=== PATIENT | female | born 1950 | race Caucasian/White ===

== ENCOUNTER 2018-09-20 13:32 | Emergency (ER) | payer MEDICARE ==
[~2018-09-20] VITALS: Ht 167.6 cm; Wt 67.8 kg
[2018-09-20 14:18] LABS: RAPID INFLUENZA A Negative (Negative); RAPID INFLUENZA B Negative (Negative)
--- NOTE | 2018-09-20 14:21 | NUR ---
PT TO ROOM BY WHEELCHAIR WITH RAILWAY [employer]. FRIEND ACCOMPANIES.
[2018-09-20 14:30] VITALS: BP 123/80
--- NOTE | 2018-09-20 14:34 | NUR ---
PT CO GENERAL FLU-LIKE SYMPTOMS X TWO WEEKS, WORSENING WEAKNESS/DIZZINESS X TWO DAYS DESPITE OTC MEDICATIONS AND Z-PACK. PT ADMITS CP W/ COUGHING AND PRODUCTIVE COUGH W/ YELLOW/GREEN SPUTUM. LUNGS CLEAR, SPO2 >90% ON RA. PT DENIES FEVER/SYNCOPE; A&OX4; FACE SYMMETRICAL, SPEECH CLEAR, +STRENGTH X 4. BP/SPO2 MONITORING IN PLACE. VS WNL.
[2018-09-20] MEDS ORDERED: LISI2.5T PO (14:37)
[2018-09-20] MEDS ORDERED: LEVO25TA4 PO (14:37)
[2018-09-20 14:50] LABS: BASOPHILS # (AUTO) 0.03 x10^3/uL (0-0.1); BASOPHILS % (AUTO) 1 % (0-1); EOSINOPHILS # (AUTO) 0.06 x10^3/uL (0-0.4); EOSINOPHILS % (AUTO) 1 % (1-7); LYMPHOCYTES # (AUTO) 1.45 x10^3/uL (1-3.4); LYMPHOCYTES % (AUTO) 26 % (22-44); MD NO; MEAN CORPUSCULAR HEMOGLOBIN 33.9 pg (27.0-34.8); MEAN CORPUSCULAR HGB CONC 34.2 g/dL (32.4-35.8); MEAN CORPUSCULAR VOLUME 99.2 fL (80-100); MEAN PLATELET VOLUME 7.2 fL (7.4-10.4); MONOCYTES # (AUTO) 0.66 x10^3/uL (0.2-0.8); MONOCYTES % (AUTO) 12 % (2-9); NEUTROPHILS # (AUTO) 3.43 x10^3/uL (1.8-6.8); NEUTROPHILS % (AUTO) 61 % (42-75); PLATELET COUNT 279 x10^3/uL (130-400); RED BLOOD COUNT 4.36 x10^6/uL (3.82-5.3); RED CELL DISTRIBUTION WIDTH 12.2 % (9.6-15.2)
[2018-09-20 14:54] LABS: ALBUMIN 3.9 g/dL (3.4-5.0); ANION GAP 8 mmol/L (5-15); CALCIUM 9.4 mg/dL (8.5-10.1); CHLORIDE 105 mmol/L (98-107); CREATININE 0.86 mg/dL (0.55-1.02)
--- NOTE | 2018-09-20 15:29 | NUR ---
POC IS DC. PT PROVIDED PEDIALYTE FOR SODIUM REPLACEMENT. PT OFF MONITORING AT THIS TIME AND ASKED TO DRESS SELF. FRIEND AT BEDSIDE FOR ASSISTANCE. AWAITING DC INSTRUCTIONS.
== END 2018-09-20 16:07 | disposition home or self-care (01) ==
LOC: ED 15:50
DX: J20.9 Acute bronchitis, unspecified (principal); J06.9 Acute upper respiratory infection, unspecified; E86.0 Dehydration; R53.1 Weakness; I10 Essential (primary) hypertension; E03.9 Hypothyroidism, unspecified
CPT/HCPCS: 36415; 71046; 80048; 82040; 85025; 87400; 93005; 99284

== ENCOUNTER → 2018-09-30 | Outpatient (CLI) | payer MEDICARE ==
[~2018-09-30] MED LIST: LEVO25TA4 PO; LISI2.5T PO
== END | disposition home or self-care (01) ==
LOC: CFH 12:58
PROVIDERS: ATTEND Internal Medicine
DX: M47.896 Other spondylosis, lumbar region (principal); M25.552 Pain in left hip
CPT/HCPCS: 72110

== ENCOUNTER 2019-09-30 11:16 | Observation (INO) | payer MEDICARE ==
[~2019-09-30] VITALS: Ht 167.6 cm; Wt 70.3 kg
[2019-09-30] MEDS ORDERED: SODIUM CHLORIDE FLUSH 10ML SYR IVF ONE (12:00)
[2019-09-30 12:04] LABS: BASOPHILS # (AUTO) 0.03 x10^3/uL (0-0.1); BASOPHILS % (AUTO) 1 % (0-1); EOSINOPHILS # (AUTO) 0.04 x10^3/uL (0-0.4); EOSINOPHILS % (AUTO) 1 % (1-7); LYMPHOCYTES # (AUTO) 1.14 x10^3/uL (1-3.4); LYMPHOCYTES % (AUTO) 28 % (22-44); MD NO; MEAN CORPUSCULAR HEMOGLOBIN 34.1 pg (27.0-34.8); MEAN CORPUSCULAR HGB CONC 34.3 g/dL (32.4-35.8); MEAN CORPUSCULAR VOLUME 99.5 fL (80-100); MEAN PLATELET VOLUME 7.1 fL (7.4-10.4); MONOCYTES # (AUTO) 0.45 x10^3/uL (0.2-0.8); MONOCYTES % (AUTO) 11 % (2-9); NEUTROPHILS # (AUTO) 2.44 x10^3/uL (1.8-6.8); NEUTROPHILS % (AUTO) 60 % (42-75); PLATELET COUNT 315 x10^3/uL (130-400); RED BLOOD COUNT 4.12 x10^6/uL (3.82-5.3); RED CELL DISTRIBUTION WIDTH 11.9 % (9.6-15.2)
[2019-09-30 12:13] LABS: ALBUMIN 3.6 g/dL (3.4-5.0); ANION GAP 6 mmol/L (5-15); CALCIUM 9.4 mg/dL (8.5-10.1); CHLORIDE 107 mmol/L (98-107); CREATININE 0.92 mg/dL (0.55-1.02)
--- NOTE | 2019-09-30 12:30 | NUR ---
DIZZY SINCE LAST SUN TO UC AT THAT TIME IS NOT RESOLVEING PT TO CT AT THIS TIME
--- NOTE | 2019-09-30 13:04 | NUR ---
PT RETURNED FROM US
[2019-09-30] MEDS ORDERED: OMNIPAQUE 350 MG/ML, 100ML BOTTLE ONE (14:48)
--- NOTE | 2019-09-30 15:02 | NUR ---
ED MD AT BEDSIDE TO DISCUSS POC C PT.
[2019-09-30 15:19] LABS: TROPONIN I < 0.015 ng/mL (0.000-0.045)
[2019-09-30] MEDS ORDERED: ASPIRIN 81 MG TABLET CHEW PO ONE (16:00)
[2019-09-30] MEDS ORDERED: ACETAMINOPHEN 325 MG TABLET PO PRN (16:30)
[2019-09-30] MEDS ORDERED: ONDANSETRON ODT 4 MG PO PRN (16:30)
[2019-09-30] MEDS ORDERED: ONDANSETRON 2MG/ML, 2ML IVPush PRN (16:30)
[2019-09-30] MEDS ORDERED: ASPIRIN 81 MG TABLET CHEW ONE (16:42)
[2019-09-30] MEDS ORDERED: LISINOPRIL 10 MG TABLET ONE (16:42)
--- NOTE | 2019-09-30 16:49 | NUR ---
PT TO MRI AT THIS TIME REMAINS DIZZY ON MOVEMENT
[2019-09-30] MEDS ORDERED: LISINOPRIL 10 MG TABLET PO ONE (17:00)
--- NOTE | 2019-09-30 17:30 | NUR ---
TASK RN: REPORT GIVEN TO BECCA TOMPKINS RN. ALL QUESTIONS ANSWERED. AWAITING PT TRANSPORT.
[2019-09-30] MEDS ORDERED: GABA-826 PO (18:08)
[2019-09-30 18:20] VITALS: BP 137/80
[2019-09-30] MEDS ORDERED: ATORVASTATIN 40 MG TABLET PO SCH (21:00)
[2019-10-01 00:05] VITALS: BP 111/76
[2019-10-01 05:22] LABS: CHLORIDE 108 mmol/L (98-107)
[2019-10-01 05:30] LABS: BASOPHILS # (AUTO) 0.03 x10^3/uL (0-0.1); BASOPHILS % (AUTO) 1 % (0-1); EOSINOPHILS # (AUTO) 0.07 x10^3/uL (0-0.4); EOSINOPHILS % (AUTO) 1 % (1-7); LYMPHOCYTES # (AUTO) 1.77 x10^3/uL (1-3.4); LYMPHOCYTES % (AUTO) 34 % (22-44); MD NO; MEAN CORPUSCULAR HEMOGLOBIN 33.9 pg (27.0-34.8); MEAN CORPUSCULAR HGB CONC 33.8 g/dL (32.4-35.8); MEAN CORPUSCULAR VOLUME 100.4 fL (80-100); MEAN PLATELET VOLUME 7.2 fL (7.4-10.4); MONOCYTES # (AUTO) 0.53 x10^3/uL (0.2-0.8); MONOCYTES % (AUTO) 10 % (2-9); NEUTROPHILS # (AUTO) 2.74 x10^3/uL (1.8-6.8); NEUTROPHILS % (AUTO) 53 % (42-75); PLATELET COUNT 304 x10^3/uL (130-400); RED BLOOD COUNT 4.17 x10^6/uL (3.82-5.3); RED CELL DISTRIBUTION WIDTH 11.6 % (9.6-15.2)
[2019-10-01 05:36] LABS: ALANINE AMINOTRANSFERASE 24 U/L (12-78); ALBUMIN 3.6 g/dL (3.4-5.0); ALKALINE PHOSPHATASE 43 U/L (45-117); ANION GAP 7 mmol/L (5-15); BILIRUBIN,TOTAL 0.5 mg/dL (0.2-1.0); CALCIUM 9.4 mg/dL (8.5-10.1); CHOL/HDL RATIO 2.8; CHOLESTEROL, TOTAL 144 mg/dL (140-239); CREATININE 0.74 mg/dL (0.55-1.02); HDL CHOL % 36 % (28-40); HDL CHOLESTEROL (DIRECT) 52 mg/dL (40-60); LDL CHOLESTEROL,CALCULATED 65 mg/dL (54-169); LDL/HDL RATIO 1.3 (0.5-3.0); TOTAL PROTEIN 7.6 g/dL (6.4-8.2); TRIGLYCERIDES 133 mg/dL (50-200); VLDL CHOLESTEROL 27 mg/dL (0-25)
[2019-10-01] MEDS ORDERED: LEVOTHYROXINE 137 MCG TABLET PO SCH (06:00)
[2019-10-01 06:42] VITALS: BP 101/67
[2019-10-01] MEDS ORDERED: ASPIRIN 81 MG TABLET EC PO SCH (09:00)
[2019-10-01 12:41] VITALS: BP 114/68
[2019-10-01] MEDS ORDERED: PRED20TA PO (13:15)
[2019-10-01] MEDS ORDERED: ASPI81TA45 PO (13:16)
[2019-10-01] MEDS ORDERED: ATOR40TA78 PO (13:16)
== END 2019-10-01 18:36 | disposition home or self-care (01) ==
LOC: ED 12:31 → EDIP 16:15 → 4WST 18:03
PROVIDERS: ADMIT Family Medicine; ATTEND Hospitalist
DX: R42 Dizziness and giddiness (principal); I10 Essential (primary) hypertension; E03.9 Hypothyroidism, unspecified; F10.10 Alcohol abuse, uncomplicated; Z79.899 Other long term (current) drug therapy
CPT/HCPCS: 36415; 70496; 70498; 70551; 80048; 80053; 80061; 82040; 83036; 84145; 84484; 85025; 93005; 93306; 93356; 97162; 97165; 99284; G0378; J7512; Q9967